=== PATIENT | female | born 1985 | race Caucasian/White ===

== ENCOUNTER 2017-09-03 20:52 | Emergency (ER) | payer MEDICAID ==
[~2017-09-03] VITALS: Ht 172.7 cm; Wt 141.1 kg
[~2017-09-03 20:52] MED LIST: ALBU8.5H5 INH; BUPR100T6 PO; VIT D PO
[2017-09-03 21:01] VITALS: BP 136/96
[2017-09-03] MEDS ORDERED: DEXAMETHASONE 4 MG TABLET PO STA (21:20)
[2017-09-03] MEDS ORDERED: IBUPROFEN 800 MG TABLET PO STA (21:20)
[2017-09-03] MEDS ORDERED: DEXAMETHASONE 4 MG TABLET ONE (21:21)
[2017-09-03] MEDS ORDERED: IBUPROFEN 200 MG TABLET ONE (21:21)
== END 2017-09-03 21:45 | disposition home or self-care (01) ==
LOC: ED 21:29
DX: H66.91 Otitis media, unspecified, right ear (principal); J45.909 Unspecified asthma, uncomplicated
CPT/HCPCS: 99283

== ENCOUNTER 2018-02-01 21:01 | Emergency (ER) | payer MEDICAID ==
[~2018-02-01] VITALS: Ht 172.7 cm; Wt 144.7 kg
[2018-02-01] MEDS ORDERED: HYDROcodone/APAP 5/325 TABLET PO ONE (21:30)
[2018-02-01] MEDS ORDERED: HYDROcodone/APAP 5/325 TABLET ONE (21:36)
[2018-02-01 22:04] VITALS: BP 135/86
== END 2018-02-01 22:06 | disposition home or self-care (01) ==
LOC: ED 21:32
DX: K08.89 Other specified disorders of teeth and supporting structures (principal); Z87.891 Personal history of nicotine dependence
CPT/HCPCS: 99283

== ENCOUNTER → 2018-05-11 | Outpatient (CLI) | payer MEDICAID | END | disposition home or self-care (01) | LOC: CFH 13:22 | PROVIDERS: ATTEND Family Medicine | DX: I63.9 Cerebral infarction, unspecified (principal) | CPT/HCPCS: 70551 ==

== ENCOUNTER 2019-01-06 21:47 | Emergency (ER) | payer MEDICAID ==
[~2019-01-06] VITALS: Ht 172.7 cm; Wt 156.2 kg
[2019-01-06 21:49] VITALS: BP 146/90
== END 2019-01-06 22:26 | disposition home or self-care (01) ==
LOC: ED 22:20
DX: H65.01 Acute serous otitis media, right ear (principal); H91.91 Unspecified hearing loss, right ear; H72.91 Unspecified perforation of tympanic membrane, right ear
CPT/HCPCS: 99283

== ENCOUNTER 2019-12-29 13:09 | Emergency (ER) | payer MEDICAID ==
[~2019-12-29] VITALS: Ht 172.7 cm; Wt 102.0 kg
--- NOTE | 2019-12-29 14:19 | NUR ---
PT DESATTING WHILE ASLEEP, PLACED ON 2L O2 WHILE NAPPING.
[2019-12-29] MEDS ORDERED: IBUPROFEN 600 MG TABLET PO ONE (14:30)
--- NOTE | 2019-12-29 14:35 | NUR ---
URINE CUP AT BEDSIDE. PT INSTRUCTED ON ITS USE. AGREEABLE TO ATTEMPTING TO COLLECT.
--- NOTE | 2019-12-29 15:08 | NUR ---
REPORT FROM MAI RIVERA, ASSUMING CARE OF PT AT THIS TIME.
[2019-12-29 15:23] LABS: BASOPHILS # (AUTO) 0.04 x10^3/uL (0-0.1); BASOPHILS % (AUTO) 1 % (0-1); EOSINOPHILS # (AUTO) 0.01 x10^3/uL (0-0.4); EOSINOPHILS % (AUTO) 0 % (1-7); LYMPHOCYTES # (AUTO) 0.25 x10^3/uL (1-3.4); LYMPHOCYTES % (AUTO) 7 % (22-44); MD NO; MEAN CORPUSCULAR HEMOGLOBIN 29.7 pg (27.0-34.8); MEAN CORPUSCULAR HGB CONC 33.2 g/dL (32.4-35.8); MEAN CORPUSCULAR VOLUME 89.3 fL (80-100); MEAN PLATELET VOLUME 8.1 fL (7.4-10.4); MONOCYTES % (AUTO) 16 % (2-9); NEUTROPHILS # (AUTO) 2.79 x10^3/uL (1.8-6.8); NEUTROPHILS % (AUTO) 76 % (42-75); PLATELET COUNT 259 x10^3/uL (130-400); RED BLOOD COUNT 4.58 x10^6/uL (3.82-5.3); RED CELL DISTRIBUTION WIDTH 13.8 % (9.6-15.2)
[2019-12-29] MEDS ORDERED: IBUPROFEN 600 MG TABLET ONE (15:26)
[2019-12-29 15:30] VITALS: BP 104/77
[2019-12-29] MEDS ORDERED: CEFTRIAXONE PMX 1GM/50ML 50 ML IVPB ONE (15:30)
--- NOTE | 2019-12-29 15:30 | NUR ---
UA COLLECTED AND SENT TO LAB. VSS AT THIS TIME. PT MEDICATED PER MAR. CALL LIGHT WITHIN REACH. WILL CONTINUE TO MONITOR
[2019-12-29 15:34] LABS: ALBUMIN 3.3 g/dL (3.4-5.0); ANION GAP 6 mmol/L (5-15); CALCIUM 8.3 mg/dL (8.5-10.1); CHLORIDE 105 mmol/L (98-107); CREATININE 0.93 mg/dL (0.55-1.02)
--- NOTE | 2019-12-29 15:42 | NUR ---
WHILE PT SLEEPING SATS ON RA DROPPED TO 78%, UPDATED. ORDERS TO AMBULATE PT IN [facility] ON RA TO DETERMINE IF PT IS TRULY HYPOXIC OR HAS SLEEP APNEA. MD WILL BE UPDATED WITH RESULTS.
--- NOTE | 2019-12-29 15:46 | NUR ---
PT MAINTAINED SAT ON 95% WHILE AMBULATING IN [facility].
[2019-12-29 15:50] LABS: MICROSCOPIC INDICATED
[2019-12-29] MEDS ORDERED: CEFTRIAXONE 1,000 MG ONE (15:50)
[2019-12-29] MEDS ORDERED: LIDOCAINE-MPF 1%, 2ML ONE (15:50)
--- NOTE | 2019-12-29 15:59 | NUR ---
PT MEDICATED PER MAR. ADDITIONAL LAB ORDER RECEIVED AT THIS TIME. AWAITING RESULT AND RECHECK
[2019-12-29] MEDS ORDERED: CEFTRIAXONE 1,000 MG IM ONE (16:00)
[2019-12-29 16:10] LABS: CULTURE INDICATED? YES
--- NOTE | 2019-12-29 16:22 | NUR ---
TO BEDSIDE FOR RECHECK, AWAITING DISPO AT THIS TIME
== END 2019-12-29 16:38 | disposition home or self-care (01) ==
LOC: ED 16:30
DX: J18.9 Pneumonia, unspecified organism (principal); M79.10 Myalgia, unspecified site; R11.0 Nausea
CPT/HCPCS: 36415; 71045; 80048; 81001; 82040; 83605; 84145; 84703; 85025; 87040; 87086; 96372; 99284; J0696